=== PATIENT | female | born 1940 | race Caucasian/White ===

== ENCOUNTER 2017-08-12 10:50 | Emergency (ER) | payer OTHER, MEDICAID ==
[~2017-08-12] VITALS: Ht 157.5 cm; Wt 81.6 kg
[2017-08-12 10:50] VITALS: BP_SYST 147
--- NOTE | 2017-08-12 10:50 | NUR ---
Patient to ER bed 2 to gown for evaluation. Side rails up. Report given to Hunter MUÑOZ.
--- NOTE | 2017-08-12 10:55 | NUR ---
Pt presents to ED c/o mech fall this Am c/o L hip and leg pain and R knee pain. Pt h/o htn and hyperlipidemia
--- NOTE | 2017-08-12 11:00 | NUR ---
ER at bedside examining patient.
[2017-08-12] MEDS ORDERED: KETOROLAC TROMETHAMINE 30 MG VIAL IVP ONE (11:15)
[2017-08-12] MEDS ORDERED: NACL 0.9% 1,000 ML IV ONE (11:15)
[2017-08-12 11:26] LABS: BASOPHILS % (AUTO) 0.2 % (0.0-2.0); EOSINOPHILS # (AUTO) 0.1 K/uL (0.0-0.4); EOSINOPHILS % (AUTO) 1.8 % (0.0-4.0); HEMATOCRIT 34.1 % (36-48); HEMOGLOBIN 11.1 g/dL (12.0-16.0); LYMPHOCYTES # (AUTO) 1.5 K/uL (1.0-5.5); LYMPHOCYTES % (AUTO) 24.7 % (20.5-51.5); MEAN CORPUSCULAR HEMOGLOBIN 31 pg (27-31); MEAN CORPUSCULAR HGB CONC 33 % (32-36); MEAN CORPUSCULAR VOLUME 95 fL (79.0-98.0); MONOCYTES # (AUTO) 0.4 K/uL (0.0-1.0); MONOCYTES % (AUTO) 5.9 % (1.7-9.3); NEUTROPHILS # (AUTO) 4.2 K/uL (1.8-7.7); NEUTROPHILS % (AUTO) 67.4 % (40.0-70.0); PLATELET COUNT (AUTO) 121 K/uL (130-430); RED BLOOD CELL COUNT(AUTO) 3.59 MIL/uL (4.2-6.2); WHITE BLOOD COUNT (AUTO) 6.2 K/uL (4.8-10.8)
--- NOTE | 2017-08-12 11:35 | NUR ---
Pt medicate tolerated well. Will monitor for improvement.
[2017-08-12 11:43] LABS: CALCIUM 9.1 mg/dL (8.4-11.0); CHLORIDE 103 mmol/L (98-107); CREATININE 0.91 mg/dL (0.55-1.30); GLUCOSE 285 mg/dL (70-99); POTASSIUM 4.3 mmol/L (3.5-5.1); SODIUM SERUM 136 mmol/L (136-145); UREA NITROGEN, BLOOD 17 mg/dL (8-21)
[2017-08-12 11:48] LABS: ALANINE AMINOTRANSFERASE 19 U/L (12-78); ALBUMIN 3.2 g/dL (3.4-4.8); ANION GAP 2 (5-15); ASPARTATE AMINOTRANSFERASE 18 U/L (10-37); TOTAL BILIRUBIN 0.3 mg/dL (0.0-1.0)
[2017-08-12] MEDS ORDERED: CHOL200041 PO (12:18)
[2017-08-12] MEDS ORDERED: NITSL SL (12:18)
[2017-08-12] MEDS ORDERED: FENO160 PO (12:18)
[2017-08-12] MEDS ORDERED: PLA200 PO (12:18)
[2017-08-12] MEDS ORDERED: DULO60CA41 PO (12:18)
[2017-08-12] MEDS ORDERED: METO50TA7 PO (12:18)
[2017-08-12] MEDS ORDERED: MECL12.584 PO (12:18)
[2017-08-12] MEDS ORDERED: ALPR1TAB2 PO (12:18)
[2017-08-12] MEDS ORDERED: ASPI81TA2 PO (12:18)
[2017-08-12] MEDS ORDERED: SENN-104 PO (12:18)
[2017-08-12] MEDS ORDERED: CYAN500L3 SL (12:18)
[2017-08-12] MEDS ORDERED: SENN25TA PO (12:18)
[2017-08-12] MEDS ORDERED: ONDA4TAB5 PO (12:18)
[2017-08-12] MEDS ORDERED: CALC215T2 PO (12:18)
[2017-08-12] MEDS ORDERED: PREG75CA PO (12:18)
[2017-08-12] MEDS ORDERED: TRAM50TA92 PO (12:18)
[2017-08-12] MEDS ORDERED: GABA-531 PO (12:18)
[2017-08-12] MEDS ORDERED: MECL-97 PO (12:18)
[2017-08-12] MEDS ORDERED: PRO40 PO (12:18)
[2017-08-12] MEDS ORDERED: LISI-600 PO (12:18)
[2017-08-12] MEDS ORDERED: LOPE2CAP PO (12:18)
--- NOTE | 2017-08-12 13:00 | NUR ---
Santhosh elizalde in ED - 08/12/17 at 1315 by RAVI Pt on stable condition, resting at this time.
--- NOTE | 2017-08-12 13:00 | NUR ---
Pt on stable condition, resting at this time.
--- NOTE | 2017-08-12 14:00 | NUR ---
Dr. Narvaez spoke w/family for pt pickup. Family to pickup pt ETA not given.
[2017-08-12 17:00] VITALS: BP_SYST 147
--- NOTE | 2017-08-12 17:00 | NUR ---
Patient given written and verbal discharge instructions and verbalizes understanding. ER MD discussed with patient the results and treatment provided. Patient in stable condition. ID arm band removed. IV catheter removed intact and dressing applied, no active bleeding. No prescriptions given. Patient educated on pain management and to follow up with PMD. Pain Scale 0/10 . Opportunity for questions provided and answered.
== END 2017-08-12 17:00 | disposition home or self-care (01) ==
LOC: SED 10:50
DX: R53.1 Weakness (principal); Z88.8 Allergy status to other drugs, medicaments and biological substances; Z79.82 Long term (current) use of aspirin; Z79.899 Other long term (current) drug therapy; W18.39XA Other fall on same level, initial encounter; Y93.89 Activity, other specified; Y92.89 Other specified places as the place of occurrence of the external cause; Y99.8 Other external cause status
CPT/HCPCS: 36415; 71010; 80053; 82550; 84484; 85025; 93005; 96361; 96374; 99285; J1885; J7030